=== PATIENT | female | born 1965 | race Caucasian/White ===

== ENCOUNTER 2024-01-01 11:26 | Emergency (ER) | payer BC, SELFPAY ==
[2024-01-01 11:28] VITALS: BP 156/99
--- NOTE | 2024-01-01 12:53 | ED.GENMED ---
History of Present Illness
General
Chief Complaint: Musculo-Skeletal Complaint
Source: patient
Exam Limitations: none
Time Seen by Provider: 01/01/24 12:03
Nursing documentation reviewed up to this point in time: agreed with
Travel History
Have you had any contact with someone who has COVID-19?: No
Do you have any symptoms of coronavirus? Fever > 100 degrees, chills, cough, shortness of breath, sore throat, loss of taste or smell, muscle aches, or headache?: No
History of Present Illness
History of Present Illness:
58-year-old female with past medical history of GERD presenting to the emergency department today with concerns of right-sided calf discomfort starting last night denies specific injury noticed discomfort mainly into her calf was told by her primary
care doctor to come to the emergency department to rule out a blood clot. Otherwise denies any chest pain shortness of breath history of blood recent trauma surgery immobilization.
Past History
Past History
ED Past Medical History: Other (Fibroid uterus with menorrhagia, breast cancer 3 years ago status post radiation, gestational hypertension, borderline cholesterol)
ED Past Surgical History: Appendectomy and Cholecystectomy
Social History
Tobacco: Non-smoker
Alcohol: Occasional
Drug: None
Personal:
Living: with family
Employment: Employed
Family History
Family History: Negative Early CAD or CAD
Review of Systems
Review of Systems
Allergies reviewed?: Yes
All Other Systems: ROS reviewed and negative except as documented in HPI and ROS
Phy Exam
Physical Exam
Physical Exam:
GENERAL: Alert , in no apparent distress
EYE: pupils equal and reactive
NECK: Supple, no significant adenopathy.
ENT: o/p clr, mmm.
CARDIAC: Regular rate and rhythm .
LUNGS: Clear breath sounds bilaterally, no acute respiratory distress, no wheezes/rales/rhonchi
ABDOMEN: Soft, without focal tenderness, no r/g, no cvat
NEUROLOGICAL: Alert and oriented, no focal neuro deficits
SKIN: Warm and dry, skin intact.
MUSCULOSKELETAL: Right leg pain mainly to the area just below the posterior knee and the proximal gastroc. No obvious swelling. Good range of motion., well perfused.
PSYCH: Normal and appropriate interaction.
Course
Orders/Labs/Results
Orders:
Orders
01/01/24 12:32
Venous Doppler Lwr Ext Rt [US Periph Venous LOWER Ext RT] Urgent
Comment:
Reason For Exam: right leg swellingpain
Vital Signs
Initial and Last Documented VS:
Initial Vital Signs
Temp Pulse Resp BP Pulse Ox
97.7 F 80 18 156/99 99
01/01/24 11:28 01/01/24 11:28 01/01/24 11:28 01/01/24 11:28 01/01/24 11:28
Last Documented Vital Signs
Temp Pulse Resp BP Pulse Ox
97.7 F 80 18 156/99 99
01/01/24 11:28 01/01/24 11:28 01/01/24 11:28 01/01/24 11:28 01/01/24 11:28
MDM/Problems Addressed
MDM/Problems Addressed:
58-year-old female presenting to the emergency department today with concerns of right-sided calf discomfort starting this morning doctor her primary care who told to come to the emergency department to rule out a blood clot. Otherwise denies any
chest no history of blood clots. Ultrasound ordered for further assessment. No signs of DVT otherwise patient generally well-appearing patient claims that she feels well walking otherwise stable for outpatient follow-up with primary care doctor.
Return precautions given.
*Critical Care Note
Total Time (30-74mins, 75-104mins- exclusive of procedures): Not Applicable
ED Attending Note
-
Portions of this chart may have been created with voice recognition software.� Occasional wrong word or��sound alike� substitutions may have occurred due to the inherent limitations of voice recognition software.
Discharge Plan
Departure
Patient Disposition: Home (Routine Discharge)
Date of Disposition: 01/01/24
Time of Disposition: 14:47
Patient with high blood pressure during this ER visit?: No
Condition: Good
Covid-19: Not Applicable
Discharge Problem:
Leg strain
Instructions: Muscle Strain (DC)
Prescriptions:
No Action
cabergoline 0.5 MG tablet
0.25 mg PO WEEKLY
Referrals:
UNKNOWN - PT DOES,NOT KNOW [Family Provider] -
Activity Restrictions/Additional Instructions:
You came to the emergency department today with concerns of leg swelling. Here you an ultrasound without signs of a clot. This is likely a strain to the area please rest ice compress and elevate over the next few days with hopeful improvement of
symptoms. Please follow close with the primary care doctor as needed. Return to the emergency department any worsening, new or concerning symptoms.
Interventions
Interventions:
*Risk Screen - Suicide Last Done: 01/01/24 12:13
*General Assessment Last Done: 01/01/24 12:13
*Neglect/Abuse Screening Last Done: 01/01/24 12:13
ED- Fall Risk Assessment Last Done: 01/01/24 12:17
*ED COVID-19 Vaccine History Last Done: 01/01/24 12:13
*Nursing Disposition Last Done: 01/01/24 14:55
ED-Musculoskeletal Assessment Last Done: 01/01/24 12:16
Discharge Date and Time
Discharge Date/Time: 01/01/24 14:55
== END 2024-01-01 14:55 | disposition home or self-care (01) ==
LOC: EMR 11:26
PROVIDERS: EMERGENCY PHYSICIAN Emergency Medicine
DX: S86.111A Strain of other muscle(s) and tendon(s) of posterior muscle group at lower leg level, right leg, initial encounter (principal); X58.XXXA Exposure to other specified factors, initial encounter; K21.9 Gastro-esophageal reflux disease without esophagitis
CPT/HCPCS: 99284; 93971

== ENCOUNTER → 2024-02-11 11:30 | Outpatient (REF) | payer BC, SELFPAY | LOC: RAD 11:30 | PROVIDERS: ATTENDING PHYSICIAN Internal Medicine Gastroenterology; FAMILY PHYSICIAN Family Medicine | DX: R10.30 Lower abdominal pain, unspecified (principal) | CPT/HCPCS: 74177; Q9967 ==

== ENCOUNTER → 2024-12-03 12:59 | Outpatient (REF) | payer BC, SELFPAY | LOC: DHSLP 12:59 | PROVIDERS: ATTENDING PHYSICIAN Physician Assistant Medical | DX: G47.33 Obstructive sleep apnea (adult) (pediatric) (principal); R09.02 Hypoxemia | CPT/HCPCS: 95800 ==

== ENCOUNTER → 2024-12-24 08:34 | Outpatient (REF) | payer OTHER, SELFPAY | LOC: WDC 08:34 | DX: N64.4 Mastodynia (principal) | CPT/HCPCS: 76642 ==